=== PATIENT | male | born 1980 | race Caucasian/White ===

== ENCOUNTER 2025-01-14 17:05 | Emergency (ER) | payer OTHER, SELFPAY ==
[2025-01-14 17:10] VITALS: BP 134/81; PULSE 72; RESP 18; TEMP 36.7; O2SAT 98; BMI 26.7
== END 2025-01-14 17:59 | disposition left against medical advice (07) ==
PROVIDERS: Emergency Provider Emergency Medicine
CPT/HCPCS: 99281

== ENCOUNTER → 2025-01-21 15:06 | Outpatient (CLI) | payer OTHER, SELFPAY ==
--- NOTE | 2025-01-21 15:09 | DI.US.S_ITS ---
PROCEDURE: US PERIPH VENOUS LOW EXTREM LT INDICATIONS: Please evaluate for deep venous thrombosis TECHNIQUE: Real-time imaging, as well as color and pulse Doppler interrogation, were performed of the lower extremity deep veins from the inguinal ligament to the popliteal fossa, with documentation of the visualized calf veins. COMPARISON: None. FINDINGS: The common femoral, femoral, popliteal, and the visualized calf veins are normally compressible, and free of intraluminal thrombus. Color and pulse Doppler demonstrate normal phasic intraluminal flow. There is normal augmentation response to distal compression maneuver. IMPRESSION: No findings of lower extremity deep venous thrombosis. Dictated by: Rodrick Watkins M.D. on 01/21/2025 at 17:08 Approved by: Rodrick Watkins M.D. on 01/21/2025 at 17:09
== END ==
LOC: US 15:07
PROVIDERS: PCP Family Medicine; Referring Provider Family Medicine; Visit Provider Family Medicine
DX: R22.42 Localized swelling, mass and lump, left lower limb (principal)
CPT/HCPCS: 93971

== ENCOUNTER 2025-04-01 08:44 | Day surgery (SDC) | payer OTHER, SELFPAY ==
[2025-04-01 09:09] VITALS: BP 125/77; PULSE 75; RESP 20; TEMP 36.4; O2SAT 98
--- NOTE | 2025-04-01 09:10 | PM.HP.IH.1 ---
History of Present Illness History of Present Illness Date Patient Seen: 04/01/25 Time Patient Seen: 09:10 Chief complaint: Screening Colonoscopy Narrative: Adonis is a 44-year-old man here for his first screening colonoscopy. No family history of colon cancer. Meds Home Medications and Allergies Allergies Allergy/AdvReac Type Severity Reaction Status Date / Time No Known Allergies Allergy Verified 01/14/25 17:10 Exam Const General: healthy appearing Assessment & Plan Assessment and plan (1) Colon cancer screening: Status: Acute Plan Colonoscopy Time-Based Coding :: [TOTAL MINUTES] spent with patient and on the chart (including review of chart, obtaining history, exam, reviewing outside data, placing orders, documenting exam and treatment plan, and counseling patient) on [DATE]. [employer]ge Document charge(s): No
[2025-04-01] MEDS: LACTATED RINGERS 1,000 ML 42 ML IV (09:13)
--- NOTE | 2025-04-01 09:31 | PM.OP.COLON ---
Operative Date/Time/Diagnoses Date of procedure: 04/01/25 Time of procedure: 09:32 Pre-op diagnosis: Colon cancer screening Post-op diagnosis: same Procedure & Clinicians Study performed: Colonoscopy Same procedure(s) as scheduled: Yes Surgeon: Dimas Sahu Anesthesia Type: MAC +/- Procedure Notes Procedure in detail: Surgeon: Dimas Sahu MD Anesthesia: Hailee Saravia CRNA Procedure: The patient was brought to the endoscopy suite, placed in left lateral decubitus position. The patient was connected to monitoring devices. A time-out was performed. Sedation was administered. Once the patient was adequately sedated, a digital rectal exam was performed and was normal. The scope was then inserted and advanced to the cecum where the appendiceal orifice was identified and photographed. The scope was then slowly withdrawn over greater than 6 minutes. The mucosa was thoroughly inspected. No abnormalities were found. The scope was retroflexed in the rectum. The scope was straightened and removed. The patient was awakened and brought to recovery. Scope withdrawal time: 7 minutes Sedation time: 12 minutes EBL: 0 Findings: Normal colon Post-procedure Recommendations: Colonoscopy in 10 years Disposition: PACU
[2025-04-01 09:32] VITALS: BP 104/56; PULSE 61; RESP 16; O2SAT 100
[2025-04-01 09:37] VITALS: BP 105/60; PULSE 60; RESP 14; O2SAT 100
[2025-04-01 09:44] VITALS: BP 106/66; PULSE 59; RESP 14; O2SAT 99
[2025-04-01 09:52] VITALS: BP 134/71; PULSE 63; RESP 14; O2SAT 100
== END 2025-04-01 10:00 | disposition home or self-care (01) ==
PROVIDERS: PCP Family Medicine; Referring Provider Surgery; Visit Provider Surgery
PROC: 0DJD8ZZ Inspection of Lower Intestinal Tract, Via Natural or Artificial Opening Endoscopic (ICD-10-PCS; CPT 45378; principal; 2025-04-01 10:00)
DX: Z12.11 Encounter for screening for malignant neoplasm of colon (principal)
CPT/HCPCS: 45378; J2704